=== PATIENT | female | born 1990 | race Caucasian/White ===

== ENCOUNTER 2018-11-11 19:11 | Emergency (ER) | payer MEDICAID ==
--- NOTE | 2018-11-11 19:31 | EDPHY ---
H & P Stated Complaint: cough, fever, chills.n/v Time Seen by Provider: 11/11/18 19:23 HPI/ROS: CHIEF COMPLAINT: Flu-like symptoms times 24 hr HISTORY OF PRESENT ILLNESS: 28-year-old immunocompetent female with no seasonal influenza vaccination [facility] complaining flu-like symptoms for 24 hr. She is in the ER for evaluation given her close living conditions. She is complaining of nausea, myalgias, fever, chills, congestion, sore throat. She had 1 episode of vomiting yesterday but has since been able tolerate full oral intake. No nausea currently. Denies: Abdominal pain, headache, nuchal rigidity, rash, muscular flaccidity and or weakness. PRIMARY CARE PROVIDER: REVIEW OF SYSTEMS: 10 systems reviewed and negative with the exception of the elements mentioned in the history of present illness PAST MEDICAL & SURGICAL HISTORY: no seasonal influenza vaccination SOCIAL HISTORY: Currently [facility] a [facility] PHYSICAL EXAM (Prior to examination, patient consented to physical exam, hands were washed and my usual and customary physical exam procedures followed) 1) GENERAL: Well-developed, well-nourished, alert and oriented. Appears to be in no acute distress. Smiling, conversive, appears well. 2) HEAD: Normocephalic, atraumatic 3) HEENT: Pupils equal, round, reactive to light bilaterally. Sclera anicteric. Nasopharynx, oropharynx, clear, no lesions. Moist Mucous membranes. No tonsillar enlargement or exudate Ears bilaterally with normal tympanic membranes. No evidence of otitis media otitis externa 4) NECK: Full range of motion, no meningeal signs. 5) LUNGS: Clear auscultation bilaterally, no wheezes, no rhonchi, no retractions. 6) HEART: Regular rate and rhythm, no murmur, no heave, no gallop. 7) ABDOMEN: No guarding, no rebound, no focal tenderness, negative McBurney's, negative Henriquez's, negative Rovsing's, negative peritoneal sign, 8) MUSCULOSKELETAL: Moving all extremities, no focal areas of tenderness, no obvious trauma. No peripheral edema or discoloration. 9) BACK: No CVA tenderness, no midline vertebral tenderness, no fluctuance, no step-off, no obvious trauma, no visual or palpable abnormality. 10) SKIN: No rash, no petechiae. 11) Psychiatric: Patient is oriented X 3, there is no agitation. DIFFERENTIAL DIAGNOSIS: In no particular order including but not limited to influenza, bronchitis, pneumonia, meningitis - Personal History LMP (Females 10-55): Over 28 Days Ago Current Tetanus Diphtheria and Acellular Pertussis (TDAP): Yes Tetanus Vaccine Date: 2012 - Medical/Surgical History Hx Asthma: Yes Hx Chronic Respiratory Disease: No Hx Diabetes: No Hx Cardiac Disease: No Hx Renal Disease: No Hx Cirrhosis: No Hx Alcoholism: No Hx HIV/AIDS: No Hx Splenectomy or Spleen Trauma: No Other PMH: medical- . surgical- x 2. anxiety/depression, cutter. hallucinations - Social History Smoking Status: Current every day smoker Constitutional: Initial Vital Signs Temperature (C) 36.6 C 11/11/18 19:17 Heart Rate 99 11/11/18 19:17 Respiratory Rate 18 11/11/18 19:17 Blood Pressure 125/97 H 11/11/18 19:17 O2 Sat (%) 95 11/11/18 19:17 O2 Delivery Mode Room Air Allergies/Adverse Reactions: No Known Allergies Allergy (Unverified 11/11/18 19:17) Home Medications: Medication Instructions Recorded Bcp 12/16/15 Wellbutrin 12/16/15 Medical Decision Making ED Course/Re-evaluation: Care of patient under supervision of secondary supervising physician Dr Machado . Patient was re-evaluated most recent 8:45 p.m.. She appears well, vital signs stable. Lungs clear bilaterally. She is resting comfortably at this time. Plan will be [facility] back to her [facility]. My Usual and customary respiratory precautions and instructions provided. - Data Points Laboratory Results: 11/11/18 19:40 Nasal Influenza A PCR NEGATIVE FOR FLU A (NEGATIVE) Nasal Influenza B PCR NEGATIVE FOR FLU B (NEGATIVE) Medications Given: Discontinued Medications Acetaminophen (Tylenol) 1,000 mg PO EDNOW ONE Stop: 11/11/18 20:07 Last Admin: 11/11/18 20:11 Dose: 1,000 mg Ibuprofen (Motrin) 800 mg PO EDNOW ONE Stop: 11/11/18 20:08 Last Admin: 11/11/18 20:11 Dose: 800 mg Departure - Departure Disposition: Home, Routine, Self-Care Clinical Impression: Viral syndrome Condition: Good Instructions: Viral Syndrome (ED) Additional Instructions: Adult Pain & Fever Control: We recommend Acetaminophen (Tylenol) and Ibuprofen (Motrin,Advil) for pain and fever control. When fever is high or pain severe, both drugs can be used at the same time, but at different intervals. Please note the time differences. Your dose is: Acetaminophen 650mg every 4 to 6 hours Ibuprofen 600mg every 6 hours with food OR Note: do not take Acetaminophen with Hydrocodone (Vicodin, Lortab) or Oycodone (Percocet). These medications also contain Acetaminophen. No more than 3000mg of Acetaminophen should be taken in 24 hours (for an adult). Referrals: [facility],. [Clinic] - 1-2 days without fail
[2018-11-11] MEDS ORDERED: ACETAMINOPHEN 500 MG TAB PO ONE (20:06)
[2018-11-11] MEDS ORDERED: IBUPROFEN 800 MG TAB PO ONE (20:07)
[2018-11-11 20:59] VITALS: BP 120/79
== END 2018-11-11 20:58 | disposition home or self-care (01) ==
DX: B34.9 Viral infection, unspecified (principal)

== ENCOUNTER 2018-12-19 | Emergency (ER) | payer MEDICAID ==
[2018-12-19] MEDS ORDERED: QUEtiapine FUMARATE 200 MG TAB PO ONE (00:35)
[2018-12-19] MEDS ORDERED: GABAPENTIN 300 MG CAP PO ONE (00:35)
[2018-12-19] MEDS: ARIPiprazole 5 MG TAB PO SCH ×2 (01:19→15:47)
[2018-12-19] MEDS: SERTRALINE HCL 100 MG TAB PO SCH ×2 (01:19→15:47)
== END 2018-12-19 21:20 ==
DX: S50.812A Abrasion of left forearm, initial encounter (principal); S50.811A Abrasion of right forearm, initial encounter; F25.0 Schizoaffective disorder, bipolar type; X78.9XXA Intentional self-harm by unspecified sharp object, initial encounter